=== PATIENT | female | born 1990 | race Caucasian/White ===

== ENCOUNTER → 2020-02-13 | Outpatient (CLI) | payer OTHER ==
[~2020-02-13] MED LIST: DULOXETINE HCL40 MG PO; NORCO 325 MG-51 TAB PO; PROAIR HFA0.09 MG/AC IH; SINGULAIR 110 MG/TAB PO; ZYRTEC 10MG10 MG PO
== END ==
LOC: COL.RAD 11:29
DX: R10.11 Right upper quadrant pain (principal); R11.0 Nausea
CPT/HCPCS: A9537; J2805

== ENCOUNTER 2020-02-14 20:28 | Observation (INO) | payer OTHER ==
[~2020-02-14] VITALS: Ht 154.9 cm; Wt 128.4 kg
[2020-02-14 21:44] LABS: BASO % 0.3 % (0.0-2.0); EOS # 0.2 (0.0-0.7); EOS % 1.7 % (0-4.0); GRAN # 7.8 (1.4-6.5); GRAN % 63.1 % (42.2-75.2); HEMATOCRIT 39.9 % (37.0-47.0); HEMOGLOBIN 13.2 g/dl (12.5-16.0); LYMPH # 3.3 (1.2-3.4); LYMPH % 26.9 % (20.0-51.0); MEAN CELL VOLUME 91 fl (80.0-100.0); MEAN CORPUSCULAR HEMOGLOBIN 30 pg (27.0-31.0); MEAN CORPUSCULAR HGB CONC 33 g/dl (33.0-37.0); MEAN PLATELET VOLUME 9.7 fl (7.4-10.4); MONO # 0.9 (0.1-0.6); MONO % 7.6 % (1.7-9.3); PLATELET COUNT 394 K/mm3 (130-400); RED BLOOD COUNT 4.41 M/mm3 (4.10-5.30); REDCELL DISTRIBUTION WIDTH-CV 13.3 % (11.5-14.5)
[2020-02-14 21:55] LABS: ALBUMIN 4.6 gm/dL (3.5-5.0); BILIRUBIN,TOTAL 0.3 mg/dL (0.0-1.0); CALCIUM 9.3 mg/dL (8.4-10.2); CREATININE, serum 0.61 (0.52-1.25); POTASSIUM 3.6 mmol/L (3.4-5.0); TOTAL PROTEIN 8.1 gm/dL (6.4-8.2)
--- NOTE | 2020-02-14 23:38 | NUR ---
pt arrived to unit from ED. Alert and oriented with vss. heart and lung sounds normal. bowel sounds aud all quadrants. does c/o right sided abdominal pain-sharp constant pain. states food makes worse. ambulatory and voiding with no issues. pedal pulses present. IV tp R AC with levaquin running, NS running. Tolerating fine. Denies needs at this time. Call light within with, will continue to monitor
[2020-02-14] MEDS ORDERED: DULOXETINE HCL40 MG PO (23:40)
[2020-02-14] MEDS ORDERED: ZYRTEC 10MG10 MG PO (23:41)
[2020-02-14] MEDS ORDERED: SINGULAIR 110 MG/TAB PO (23:41)
[2020-02-14] MEDS ORDERED: PROAIR HFA0.09 MG/AC IH (23:42)
[2020-02-15] VITALS (11 sets, daily range): BP systolic 122–150; BP diastolic 61–86; PULSE 62–87; TEMP 97.5–98.1
--- NOTE | 2020-02-15 04:57 | NUR ---
Pt has done ok through night, has not slept much. IS having some nausea and pain, prn meds given per orders. Call light within reach, will continue to monitor
--- NOTE | 2020-02-15 07:58 | NUR ---
Patient resting in bed, watching Tv. Alert & oriented, reports elevated pain this am. 07/06, Iv morphine per orders. She remains npo. She reports nausea comes as pain is elevated. [place] to this am, ICG green per orders given Iv to [facility]. Await patient to be taken to OR.
--- NOTE | 2020-02-15 08:37 | NUR ---
rounded. Up to the bathroom voided & independent with hygiene.
--- NOTE | 2020-02-15 08:45 | NUR ---
Patient to Or. Will await her return
[2020-02-15] MEDS ORDERED: NORCO 325 MG-51 TAB PO (10:25)
--- NOTE | 2020-02-15 11:16 | NUR ---
Patient has returned to room. Report from [facility] nurse Mayelin. post op vitals stable. Patient is drowsy. Lap site x4 bandaids intact. Scds ble. Ice water provided. will monitor.
--- NOTE | 2020-02-15 12:28 | NUR ---
Patient more awake, reports elevated pain to ruq. one tab norco per request. She does also report mild nausea. Was able to tolerate few bites of food with pain medication. Vitals remains stable on room air. Will monitor.
--- NOTE | 2020-02-15 14:23 | NUR ---
Patient up to the bathroom, voided without difficulty. No nausea at this time.
--- NOTE | 2020-02-15 15:15 | NUR ---
Patient given all discharge teaching, her ride is on the way to the hospital. We reviewed diet & activity resctictions, signs & symptoms of when to call the doctor. [place] script sent with patient & home med list & medication safety discussed. Patient Int dc. Pain and nausea mangaged. She denies questions or concerns.
--- NOTE | 2020-02-15 16:11 | NUR ---
Patient wheeled out.
== END 2020-02-15 16:12 | disposition home or self-care (01) ==
LOC: COL.ER 20:28 → SURG 22:22
PROVIDERS: Emergency Medicine; ADMIT Surgery
DX: K81.0 Acute cholecystitis (principal); J45.909 Unspecified asthma, uncomplicated; Z79.899 Other long term (current) drug therapy; Z88.1 Allergy status to other antibiotic agents; Z88.0 Allergy status to penicillin; Z88.8 Allergy status to other drugs, medicaments and biological substances
CPT/HCPCS: A4216; G0378; J0330; J1100; J1956; J2250; J2270; J2405; J2550; J2704; J3010; J7030